=== PATIENT | female | born 1935 | race Caucasian/White ===

== ENCOUNTER 2018-02-07 05:15 | Emergency (ER) | payer OTHER ==
[2018-02-07 06:10] LABS: Absolute Lymphocytes (CBC) 1.9 K/uL (0.7-4.9); Absolute Monocytes 0.6 K/uL (0.1-1.3); Absolute Neutrophil 1.7 K/uL (1.8-8.0); Basophils % 0.4 % (0-1.3); Hematocrit 37.1 % (36.0-45.0); Lymphocytes % 45.7 % (15.3-44.8); MCH 30.6 pg (27.0-35.0); MCV 90.6 fL (80-100); MPV 9.6 fL (7.6-11.3); Monocytes % 13.5 % (3.3-12.3); RBC Red Blood Cell Count 4.09 M/uL (3.86-4.86)
[2018-02-07 06:36] LABS: ALT/SGPT 19 U/L (12-78); AST/SGOT 17 U/L (15-37); Albumin 3.4 g/dL (3.4-5.0); Alkaline Phosphatase 76 U/L (45-117); BUN Blood Urea Nitrogen 13 mg/dL (7-18); Bicarbonate 27 mmol/L (21-32); Bilirubin Direct < 0.1 mg/dL (0-0.2); Bilirubin Total 0.2 mg/dL (0.2-1.0); Glucose Level 90 mg/dL (74-106); Magnesium 2.1 mg/dL (1.8-2.4); NT PRO-BNP 270 pg/mL (<450); Potassium 3.7 mmol/L (3.5-5.1); Sodium Level 144 mmol/L (136-145); Thyroid Stimulating Hormone 0.047 uIU/mL (0.360-3.740); Troponin (Emerg Dept Use Only) 0.02 ng/mL (0.0-0.045)
--- NOTE | 2018-02-07 06:58 | ER ---
Nurse's Notes [facility] Name: Kelsi Swan Age: 82 yrs Sex: Female : 1935 Arrival Date: 02/07/2018 Time: 05:25 Bed 4 Private MD: Evgeny Jett Diagnosis: Palpitations Presentation: 02/07 05:26 Presenting complaint: Patient states: "Palpitations that began when I woke up at 0400"; lp1 Denies any chest pain, shortness of breath, dizziness. Transition of care: patient was not received from another setting of care. Onset of symptoms was February 07, 2018 at 04:00. Risk Assessment: Do you want to hurt yourself or someone else? Patient reports no desire to harm self or others. Initial Sepsis Screen: Does the patient meet any 2 criteria? No. Patient's initial sepsis screen is negative. Does the patient have a suspected source of infection? No. Patient's initial sepsis screen is negative. Care prior to arrival: None. 05:26 Method Of Arrival: Wheelchair lp1 05:26 Acuity: ANKIT 3 lp1 05:31 Note Patient states palpitations have decreased since starting. lp1 Historical: - Allergies: 05:29 No Known Allergies; lp1 - Home Meds: 05:29 levothyroxine 112 mcg tab 1 tab once daily [Active]; metoprolol tartrate 25 mg Oral tab lp1 1 tab once daily [Active]; - PMHx: 05:29 Hypertension; Hypothyroidism; lp1 - PSHx: 05:29 Hysterectomy; cataract surgery; lp1 - Immunization history:: Adult Immunizations up to date. - Social history:: Smoking status: Patient uses tobacco products, denies chronic smoking, but will smoke occasionally. - Ebola Screening: : No symptoms or risks identified at this time. Screenin:29 Abuse screen: Denies threats or abuse. Denies injuries from another. Nutritional lp1 screening: No deficits noted. Tuberculosis screening: No symptoms or risk factors identified. Fall Risk None identified. Assessment: 05:30 General: Appears in no apparent distress. Behavior is appropriate for age. Pain: Denies lp1 pain. Neuro: Level of Consciousness is awake, alert, obeys commands, Oriented to person, place, time, situation. Cardiovascular: Reports palpitations, that have improved Patient's skin is warm and dry. Rhythm is sinus tachycardia. Respiratory: Respiratory effort is even, unlabored, Breath sounds are clear bilaterally. GI: No signs and/or symptoms were reported involving the gastrointestinal system. : No signs and/or symptoms were reported regarding the genitourinary system. EENT: No signs and/or symptoms were reported regarding the EENT system. Derm: Skin is pink, warm \\T\\ dry. Musculoskeletal: Circulation, motion, and sensation intact. 06:30 Reassessment: Patient appears in no apparent distress at this time. Patient and/or lp1 family updated on plan of care and expected duration. Pain level reassessed. Patient is alert, oriented x 3, equal unlabored respirations, skin warm/dry/pink. Patient denies pain at this time. Patient states feeling better. Patient states symptoms have improved. Vital Signs: 05:28 BP 164 / 84; Pulse 105; Resp 18; Pulse Ox 99% on R/A; Weight 56.7 kg; Height 5 ft. 5 lp1 in. (165.10 cm); Pain 0/10; 06:00 BP 141 / 72; Pulse 89; Resp 17; Pulse Ox 95% on R/A; lp1 06:30 BP 144 / 70; Pulse 74; Resp 17; Temp 98.9(O); Pulse Ox 96% on R/A; Pain 0/10; lp1 06:59 BP 144 / 69; Pulse 70; Resp 18; Pulse Ox 98% on R/A; Pain 0/10; lp1 05:28 Body Mass Index 20.80 (56.70 kg, 165.10 cm) lp1 ED Course: 05:25 Patient arrived in ED. es 05:25 Evgeny Jett MD is Private Physician. es 05:28 Triage completed. lp1 05:28 Arm band placed on left wrist. lp1 05:30 EKG done, by ED staff, reviewed by Adan Hensley MD. lp1 05:31 Patient has correct armband on for positive identification. Placed in gown. Bed in low lp1 position. front desk monitor on. Pulse ox on. NIBP on. 05:36 Inserted saline lock: 20 gauge in right antecubital area, using aseptic technique. mw2 Blood collected. 05:55 X-ray completed. Portable x-ray completed in exam room. Patient tolerated procedure sg4 well. 05:57 XRAY Chest (1 view) In Process Unspecified. EDMS 06:02 Junior Martinez NP is PHCP. pm1 06:42 Teresa Hillman, RN is Primary Nurse. lp1 06:55 Marcus Last MD is Attending Physician. pm1 06:57 Evgeny Jett MD is Referral Physician. pm1 07:15 No provider procedures requiring assistance completed. IV discontinued, No lp1 redness/swelling at site. Pressure dressing applied. Administered Medications: No medications were administered Outcome: 06:57 Discharge ordered by MD. pm1 07:15 Discharged to home ambulatory. lp1 07:15 Condition: good 07:15 Discharge instructions given to patient, Instructed on discharge instructions, follow up and referral plans. Demonstrated understanding of instructions, follow-up care. 07:16 Patient left the ED. lp1 Signatures: Dispatcher [employer] EDLA Lizbeth Rasheed Teresa Hillman RN RN lp1 Junior Martinez NP HYDRAULIC GOVERNOR ASSEMBLER pm1 Senthil Falcon mw2 Jennifer Mora sg4 Corrections: (The following items were deleted from the chart) 06:46 06:30 BP 144 / 70; Pulse 74bpm; Resp 17bpm; Pulse Ox 96% RA; lp1 lp1
--- NOTE | 2018-02-07 06:58 | EDPHYS ---
Physician Documentation [facility] Name: Kelsi Swan Age: 82 yrs Sex: Female : 1935 Arrival Date: 02/07/2018 Time: 05:25 Bed 4 Private MD: Evgeny Jett ED Physician Marcus Last HPI: 02/07 06:11 This 82 yrs old Female presents to ER via Wheelchair with complaints of pm1 Palpitations. 06:11 The patient presents with a history of heart racing. Context: The symptoms occur at pm1 rest. Onset: The symptoms/episode began/occurred at 04:00. Duration: The patient or guardian reports a single episode, that is now resolved, last approximately 10 minutes. Modifying factors: The symptoms are aggravated by nothing. The symptoms are alleviated by nothing. Associated signs and symptoms: Pertinent negatives: anxiety, chest pain, cough, fever, nausea, SOB, syncope, near-syncope, vertigo, vomiting. Severity of symptoms: in the emergency department the symptoms have resolved. The patient has experienced similar episodes in the past, multiple times. The patient has not recently seen a physician, the patient's primary care provider is Dr. Jett. Historical: - Allergies: 05:29 No Known Allergies; lp1 - Home Meds: 05:29 levothyroxine 112 mcg tab 1 tab once daily [Active]; metoprolol tartrate 25 mg Oral tab lp1 1 tab once daily [Active]; - PMHx: 05:29 Hypertension; Hypothyroidism; lp1 - PSHx: 05:29 Hysterectomy; cataract surgery; lp1 - Immunization history:: Adult Immunizations up to date. - Social history:: Smoking status: Patient uses tobacco products, denies chronic smoking, but will smoke occasionally. - Ebola Screening: : No symptoms or risks identified at this time. ROS: 06:11 Constitutional: Negative for fever, chills, and weight loss, Eyes: Negative for injury, pm1 pain, redness, and discharge, ENT: Negative for injury, pain, and discharge, Neck: Negative for injury, pain, and swelling, Respiratory: Negative for shortness of breath, cough, wheezing, and pleuritic chest pain, Abdomen/GI: Negative for abdominal pain, nausea, vomiting, diarrhea, and constipation. 06:11 Back: Negative for injury and pain, : Negative for injury, bleeding, discharge, and swelling, MS/Extremity: Negative for injury and deformity, Skin: Negative for injury, rash, and discoloration, Neuro: Negative for headache, weakness, numbness, tingling, and seizure. 06:11 Cardiovascular: Positive for palpitations, Negative for chest pain, edema, orthopnea. Exam: 06:11 Constitutional: This is a well developed, well nourished patient who is awake, alert, pm1 and in no acute distress. Head/Face: Normocephalic, atraumatic. Eyes: Pupils equal round and reactive to light, extra-ocular motions intact. Lids and lashes normal. Conjunctiva and sclera are non-icteric and not injected. Cornea within normal limits. Periorbital areas with no swelling, redness, or edema. ENT: Nares patent. No nasal discharge, no septal abnormalities noted. Tympanic membranes are normal and external auditory canals are clear. Oropharynx with no redness, swelling, or masses, exudates, or evidence of obstruction, uvula midline. Mucous membranes moist. Neck: Trachea midline, no thyromegaly or masses palpated, and no cervical lymphadenopathy. Supple, full range of motion without nuchal rigidity, or vertebral point tenderness. No Meningismus. Chest/axilla: Normal chest wall appearance and motion. Nontender with no deformity. No lesions are appreciated. Cardiovascular: Regular rate and rhythm with a normal S1 and S2. No gallops, murmurs, or rubs. Normal PMI, no JVD. No pulse deficits. Respiratory: Lungs have equal breath sounds bilaterally, clear to auscultation and percussion. No rales, rhonchi or wheezes noted. No increased work of breathing, no retractions or nasal flaring. Abdomen/GI: Soft, non-tender, with normal bowel sounds. No distension or tympany. No guarding or rebound. No evidence of tenderness throughout. Back: No spinal tenderness. No costovertebral tenderness. Full range of motion. Skin: Warm, dry with normal turgor. Normal color with no rashes, no lesions, and no evidence of cellulitis. MS/ Extremity: Pulses equal, no cyanosis. Neurovascular intact. Full, normal range of motion. 06:11 Neuro: Orientation: is normal, Motor: is normal, Sensation: is normal, no obvious gross deficits. Vital Signs: 05:28 BP 164 / 84; Pulse 105; Resp 18; Pulse Ox 99% on R/A; Weight 56.7 kg; Height 5 ft. 5 lp1 in. (165.10 cm); Pain 0/10; 06:00 BP 141 / 72; Pulse 89; Resp 17; Pulse Ox 95% on R/A; lp1 06:30 BP 144 / 70; Pulse 74; Resp 17; Temp 98.9(O); Pulse Ox 96% on R/A; Pain 0/10; lp1 06:59 BP 144 / 69; Pulse 70; Resp 18; Pulse Ox 98% on R/A; Pain 0/10; lp1 05:28 Body Mass Index 20.80 (56.70 kg, 165.10 cm) lp1 MDM: 06:03 Patient medically screened. pm1 06:16 Data reviewed: vital signs. Data interpreted: Pulse oximetry: on room air is 99 %. pm1 Interpretation: normal. 06:56 Counseling: I had a detailed discussion with the patient and/or guardian regarding: the pm1 historical points, exam findings, and any diagnostic results supporting the discharge/admit diagnosis, lab results, radiology results, the need for outpatient follow up, for definitive care, Dr Jett, to return to the emergency department if symptoms worsen or persist or if there are any questions or concerns that arise at home. 06:56 ED course: Patient reports levothyroxine dosage increased a few months ago. pm1 Palpitations likely a result of increased dosage due to TSH level. Currently taking 112 mcg once daily. Instructed patient to follow up with Dr. Jett for dosage reduction of levothyroxine. Patient takes her levothyroxine at the same time each morning on empty stomach. Has prior levothyroxine medication dosage at home. 02/07 05:42 Order name: Basic Metabolic Panel; Complete Time: 06:39 mw2 02/07 05:42 Order name: CBC with Diff; Complete Time: 06:39 mw2 02/07 05:42 Order name: LFT's; Complete Time: 06:39 mw2 02/07 05:42 Order name: Magnesium; Complete Time: 06:39 mw2 02/07 05:42 Order name: NT PRO-BNP; Complete Time: 06:39 mw2 02/07 05:42 Order name: PT-INR; Complete Time: 06:39 mw2 02/07 05:42 Order name: Troponin (emerg Dept Use Only); Complete Time: 06:39 mw2 02/07 05:42 Order name: XRAY Chest (1 view) mw2 02/07 05:42 Order name: EKG; Complete Time: 05:43 mw2 02/07 05:42 Order name: Cardiac monitoring; Complete Time: 05:43 mw2 02/07 05:42 Order name: EKG - Nurse/Tech; Complete Time: 05:43 mw2 02/07 05:42 Order name: IV Saline Lock; Complete Time: 05:43 mw2 02/07 06:15 Order name: Thyroid Stimulating Hormone; Complete Time: 06:39 EDMS 02/07 05:42 Order name: Labs collected and sent; Complete Time: 05:43 mw2 02/07 05:42 Order name: O2 Per Protocol; Complete Time: 05:45 mw2 02/07 05:42 Order name: O2 Sat Monitoring; Complete Time: 05:45 mw2 Administered Medications: No medications were administered Disposition: 02/08 06:28 Co-signature as Attending Physician, Marcus Last MD I agree with the assessment and evi plan of care. Disposition: 02/07/18 06:57 Discharged to Home. Impression: Palpitations. - Condition is Stable. - Discharge Instructions: Hyperthyroidism, Palpitations. - Medication Reconciliation Form, Thank You Letter form. - Follow up: Emergency Department; When: As needed; Reason: Worsening of condition. Follow up: Evgeny Jett MD; When: 2 - 3 days; Reason: Recheck today's complaints, Continuance of care, Re-evaluation by your physician. - Problem is new. - Symptoms have improved. Signatures: Dispatcher [employer] [facility] Marcus Last MD MD cha Pena, Laura RN RN lp1 Junior Martinez, ESOL TEACHER ASSISTANT ESOL TEACHER ASSISTANT pm1 Senthil Falcon mw2 Corrections: (The following items were deleted from the chart) 02/07 06:15 06:07 THYROID STIMULAT HORMONE+C.LAB.BRZ ordered. [facility] 07:16 06:57 02/07/2018 06:57 Discharged to Home. Impression: Palpitations. Condition is lp1 Stable. Forms are Medication Reconciliation Form, Thank You Letter, Antibiotic Education, Prescription Opioid Use. Follow up: Emergency Department; When: As needed; Reason: Worsening of condition. Follow up: Evgeny Jett; When: 2 - 3 days; Reason: Recheck today's complaints, Continuance of care, Re-evaluation by your physician. Problem is new. Symptoms have improved. pm1
--- NOTE | 2018-02-07 07:03 | EKG ---
Test Date: 2018-02-07 Test Time: 05:22:23 Field Scout: LETTY MEASUREMENT RESULTS: Intervals: Rate: 105 [place]: 162 QRSD: 136 QT: 368 QTc: 486 [place]: P: 67 [place]: 162 QRS: 63 T: 237 INTERPRETIVE STATEMENTS: Sinus tachycardia Left bundle branch block Abnormal ECG Compared to ECG 03/03/2016 12:11:52 Sinus bradycardia no longer present Electronically Signed On 02-07-18 07:02:34 JANITORIAL SUPERVISOR by Armen Fields
[2018-02-07 07:25] VITALS: TEMP 98.9
[2018-02-07 07:26] VITALS: BP 144/69; O2SAT 98
--- NOTE | 2018-02-07 08:56 | RAD REPORT ---
EXAM DESCRIPTION: Rashi Single View02/07/2018 5:57 am CLINICAL HISTORY: Palpitations COMPARISON: September 2017 FINDINGS: Lungs are hyperaerated. The lungs appear clear of acute infiltrate. The heart is normal s ize IMPRESSION: No acute abnormalities displayed
== END 2018-02-07 07:16 | disposition home or self-care (01) ==
LOC: ER 05:15
DX: R00.2 Palpitations (principal); I10 Essential (primary) hypertension; E03.9 Hypothyroidism, unspecified; Z72.0 Tobacco use
CPT/HCPCS: 36415; 71045; 80048; 80076; 83735; 83880; 84443; 84484; 85025; 85610; 93005; 99284

== ENCOUNTER 2018-03-05 09:50 | Emergency (ER) | payer OTHER ==
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
[2018-03-05 11:44] VITALS: TEMP 98.6
[2018-03-05 11:45] VITALS: BP 112/68; O2SAT 98
== END 2018-03-05 11:39 | disposition home or self-care (01) ==
LOC: ER 09:50
DX: S29.012A Strain of muscle and tendon of back wall of thorax, initial encounter (principal); V89.2XXA Person injured in unspecified motor-vehicle accident, traffic, initial encounter; I10 Essential (primary) hypertension; E03.9 Hypothyroidism, unspecified; Z72.0 Tobacco use
CPT/HCPCS: 70450; 72125; 99284

== ENCOUNTER 2018-07-22 20:47 | Emergency (ER) | payer OTHER ==
--- NOTE | 2018-07-22 21:37 | ER ---
Nurse's Notes [facility] Name: Kelsi Swan Age: 82 yrs Sex: Female : 1935 Arrival Date: 07/22/2018 Time: 21:06 Bed 28 Private MD: Diagnosis: Skin tear Presentation: 07/22 21:15 Presenting complaint: Patient states: "I got my left leg caught between the venue manager jd3 and the garage door and it got cut.". Transition of care: patient was not received from another setting of care. Onset of symptoms was July 22, 2018. Risk Assessment: Do you want to hurt yourself or someone else? Patient reports no desire to harm self or others. Initial Sepsis Screen: Does the patient meet any 2 criteria? No. Patient's initial sepsis screen is negative. Does the patient have a suspected source of infection? No. Patient's initial sepsis screen is negative. Care prior to arrival: None. 21:15 Method Of Arrival: Wheelchair jd3 21:15 Acuity: ANKIT 3 jd3 Historical: - Allergies: 21:18 No Known Allergies; jd3 - Home Meds: 21:18 levothyroxine 112 mcg tab 1 tab once daily [Active]; metoprolol tartrate 25 mg Oral tab jd3 1 tab once daily [Active]; aspirin 81 mg Oral chew [Active]; - PMHx: 21:18 Hypertension; Hypothyroidism; Osteoporosis; chronic bronchitis; jd3 - PSHx: 21:18 cataract surgery; Hysterectomy; jd3 - Immunization history:: Adult Immunizations up to date. - Social history:: Smoking status: Patient uses tobacco products, denies chronic smoking, but will smoke occasionally. - Ebola Screening: : Patient negative for fever greater than or equal to 101.5 degrees Fahrenheit, and additional compatible Ebola Virus Disease symptoms. Screenin:41 Abuse screen: Denies threats or abuse. Denies injuries from another. Nutritional mg2 screening: No deficits noted. Tuberculosis screening: No symptoms or risk factors identified. Fall Risk None identified. Assessment: 21:42 General: Appears in no apparent distress. comfortable, Behavior is calm, cooperative. mg2 Pain: Complains of pain in left leg Pain does not radiate. Pain currently is 3 out of 10 on a pain scale. Quality of pain is described as aching, Pain began suddenly. Neuro: Level of Consciousness is awake, alert, obeys commands, Oriented to person, place, time, situation. Cardiovascular: Capillary refill < 3 seconds Patient's skin is warm and dry. Respiratory: Airway is patent Respiratory effort is even, unlabored, Respiratory pattern is regular, symmetrical. GI: No signs and/or symptoms were reported involving the gastrointestinal system. : No signs and/or symptoms were reported regarding the genitourinary system. EENT: No signs and/or symptoms were reported regarding the EENT system. Derm: Skin is pink, warm \\T\\ dry. normal, Wound noted left leg Wound is abrasion. Musculoskeletal: Circulation, motion, and sensation intact. Capillary refill < 3 seconds. Injury Description: Abrasion and skin tear. Vital Signs: 21:19 BP 170 / 92; Pulse 83; Resp 17 S; Temp 98.0(O); Pulse Ox 97% on R/A; Weight 56.7 kg jd3 (R); Height 5 ft. 5 in. (165.10 cm) (R); Pain 2/10; 21:19 Body Mass Index 20.80 (56.70 kg, 165.10 cm) jd3 ED Course: 21:06 Patient arrived in ED. ds1 21:08 Daphney Martínez F[facility]C is [facility]. snw 21:08 Jay García MD is Attending Physician. snw 21:10 Preston Gallardo, JOSE is Primary Nurse. mg2 21:17 Triage completed. jd3 21:19 Arm band placed on. jd3 21:41 No provider procedures requiring assistance completed. Patient did not have IV access mg2 during this emergency room visit. 22:08 Patient has correct armband on for positive identification. mg2 22:08 Wound care: to skin tear located on left leg was cleaned with Hibiclens, irrigated with mg2 normal saline, dressed with Neosporin, 4X4s, non adherent dressing. Administered Medications: 21:40 Drug: KeFLEX 500 mg Route: PO; mg2 22:08 Follow up: Response: No adverse reaction; Medication administered at discharge. mg2 Outcome: 21:36 Discharge ordered by . snw 22:09 Discharged to home ambulatory. mg2 22:09 Condition: stable 22:09 Discharge instructions given to patient, Instructed on discharge instructions, follow up and referral plans. medication usage, Demonstrated understanding of instructions, follow-up care, medications, wound care, Prescriptions given X 1. 22:10 Patient left the ED. mg2 Signatures: Daphney Martínez, MARIAH-C RACING DRIVER-Nemo Yan ds1 Alonso Simpson RN RN jd3 Preston Gallardo RN RN mg2 Corrections: (The following items were deleted from the chart) 21:20 21:15 Presenting complaint: Patient states: "I got my leg caught between the venue manager jd3 and the garage door and it got cut." jnatasha
--- NOTE | 2018-07-22 21:37 | EDPHYS ---
Physician Documentation [facility] Name: Kelsi Swan Age: 82 yrs Sex: Female : 1935 Arrival Date: 07/22/2018 Time: 21:06 Bed 28 Private MD: ED Physician Jay García HPI: 07/23 00:12 This 82 yrs old Female presents to ER via Wheelchair with complaints of Leg snw Injury. 00:12 The patient presents with an abrasion, an injury. The complaints affect the lateral snw aspect of left calf and medial aspect of left calf. Context: The problem was sustained outdoors, resulted from a crush injury, pt caught her leg between the amusement park ride mechanic and another object, skin tear to left lower leg. pt up to date on tetanus, denies pain, walked into ED room without difficulty, bleeding controlled, the patient can fully bear weight, the patient is able to ambulate. Onset: The symptoms/episode began/occurred suddenly, just prior to arrival. Associated signs and symptoms: Pertinent positives: skin tear. Severity of symptoms: At their worst the symptoms were mild, moderate. The patient has experienced similar episodes in the past. It is unknown whether or not the patient has recently seen a physician, sees Dr. Jett. Historical: - Allergies: 07/22 21:18 No Known Allergies; jd3 - Home Meds: 21:18 levothyroxine 112 mcg tab 1 tab once daily [Active]; metoprolol tartrate 25 mg Oral tab jd3 1 tab once daily [Active]; aspirin 81 mg Oral chew [Active]; - PMHx: 21:18 Hypertension; Hypothyroidism; Osteoporosis; chronic bronchitis; jd3 - PSHx: 21:18 cataract surgery; Hysterectomy; jd3 - Immunization history:: Adult Immunizations up to date. - Social history:: Smoking status: Patient uses tobacco products, denies chronic smoking, but will smoke occasionally. - Ebola Screening: : Patient negative for fever greater than or equal to 101.5 degrees Fahrenheit, and additional compatible Ebola Virus Disease symptoms. ROS: 07/23 00:11 Constitutional: Negative for fever, chills, and weight loss, Eyes: Negative for injury, snw pain, redness, and discharge, ENT: Negative for injury, pain, and discharge, Neck: Negative for injury, pain, and swelling, Cardiovascular: Negative for chest pain, palpitations, and edema, Respiratory: Negative for shortness of breath, cough, wheezing, and pleuritic chest pain, Abdomen/GI: Negative for abdominal pain, nausea, vomiting, diarrhea, and constipation, Back: Negative for injury and pain, : Negative for injury, bleeding, discharge, and swelling, MS/Extremity: Negative for injury and deformity, Neuro: Negative for headache, weakness, numbness, tingling, and seizure, Psych: Negative for depression, anxiety, suicide ideation, homicidal ideation, and hallucinations. Skin: Positive for laceration(s), of the left leg. Exam: 00:09 Constitutional: This is a well developed, well nourished patient who is awake, alert, snw and in no acute distress. Head/Face: Normocephalic, atraumatic. Eyes: Pupils equal round and reactive to light, extra-ocular motions intact. Lids and lashes normal. Conjunctiva and sclera are non-icteric and not injected. Cornea within normal limits. Periorbital areas with no swelling, redness, or edema. ENT: Nares patent. No nasal discharge, no septal abnormalities noted. Tympanic membranes are normal and external auditory canals are clear. Oropharynx with no redness, swelling, or masses, exudates, or evidence of obstruction, uvula midline. Mucous membranes moist. Neck: Trachea midline, no thyromegaly or masses palpated, and no cervical lymphadenopathy. Supple, full range of motion without nuchal rigidity, or vertebral point tenderness. No Meningismus. Chest/axilla: Normal chest wall appearance and motion. Nontender with no deformity. No lesions are appreciated. Cardiovascular: Regular rate and rhythm with a normal S1 and S2. No gallops, murmurs, or rubs. Normal PMI, no JVD. No pulse deficits. Respiratory: Lungs have equal breath sounds bilaterally, clear to auscultation and percussion. No rales, rhonchi or wheezes noted. No increased work of breathing, no retractions or nasal flaring. Abdomen/GI: Soft, non-tender, with normal bowel sounds. No distension or tympany. No guarding or rebound. No evidence of tenderness throughout. Back: No spinal tenderness. No costovertebral tenderness. Full range of motion. MS/ Extremity: Pulses equal, no cyanosis. Neurovascular intact. Full, normal range of motion. Neuro: Awake and alert, GCS 15, oriented to person, place, time, and situation. Cranial nerves II-XII grossly intact. Motor strength 5/5 in all extremities. Sensory grossly intact. Cerebellar exam normal. Normal gait. 00:09 Skin: Appearance: normal except for affected area, injury, skin tear to lower left leg, bleeding controlled, pt denies pain. Vital Signs: 07/22 21:19 BP 170 / 92; Pulse 83; Resp 17 S; Temp 98.0(O); Pulse Ox 97% on R/A; Weight 56.7 kg jd3 (R); Height 5 ft. 5 in. (165.10 cm) (R); Pain 2/10; 21:19 Body Mass Index 20.80 (56.70 kg, 165.10 cm) jd3 MDM: 21:08 Patient medically screened. snw 07/23 00:11 Data reviewed: vital signs, nurses notes. Data interpreted: Pulse oximetry: on room air snw is 97 %. Interpretation: normal. Counseling: I had a detailed discussion with the patient and/or guardian regarding: the historical points, exam findings, and any diagnostic results supporting the discharge/admit diagnosis, the presence of at least one elevated blood pressure reading (>120/80) during this emergency department visit, the need for outpatient follow up, to return to the emergency department if symptoms worsen or persist or if there are any questions or concerns that arise at home. Special discussion: I discussed in detail with the patient the higher chance of wound infection based on his presenting history. Based on the history and exam findings, there is no indication for further emergent testing or inpatient evaluation. I discussed with the patient/guardian the need to see the primary care provider for further evaluation of the symptoms. 07/22 21:35 Order name: Wound Care; Complete Time: 21:35 snw 07/22 21:35 Order name: Wound dressing; Complete Time: 21:35 snw Administered Medications: 07/22 21:40 Drug: KeFLEX 500 mg Route: PO; mg2 22:08 Follow up: Response: No adverse reaction; Medication administered at discharge. mg2 Disposition: 07/22/18 21:36 Discharged to Home. Impression: Skin tear. - Condition is Stable. - Discharge Instructions: Skin Tear Care. - Prescriptions for Keflex 500 mg Oral Capsule - take 1 capsule by ORAL route every 8 hours for 10 days; 30 capsule. - Medication Reconciliation Form, Thank You Letter, Antibiotic Education, Prescription Opioid Use form. - Follow up: Private Physician; When: 2 - 3 days; Reason: Recheck today's complaints, Continuance of care, Re-evaluation by your physician. Follow up: Emergency Department; When: As needed; Reason: Worsening of condition. Signatures: Daphney Martínez FNP-C CHEMICAL PREPARER-Alonso Chilel RN RN jd3 Preston Gallardo RN RN mg2 Corrections: (The following items were deleted from the chart) 22:10 21:36 07/22/2018 21:36 Discharged to Home. Impression: Skin tear. Condition is Stable. mg2 Forms are Medication Reconciliation Form, Thank You Letter, Antibiotic Education, Prescription Opioid Use. Follow up: Private Physician; When: 2 - 3 days; Reason: Recheck today's complaints, Continuance of care, Re-evaluation by your physician. Follow up: Emergency Department; When: As needed; Reason: Worsening of condition. snw
[2018-07-22] MEDS ORDERED: CEPHALEXIN 250 MG CAP ONE (21:53)
[2018-07-22 23:29] VITALS: BP 170/92; TEMP 98; O2SAT 97
== END 2018-07-22 22:10 | disposition home or self-care (01) ==
LOC: ER 20:47
DX: S81.812A Laceration without foreign body, left lower leg, initial encounter (principal); W22.8XXA Striking against or struck by other objects, initial encounter; Y93.9 Activity, unspecified; Y92.9 Unspecified place or not applicable; Z72.0 Tobacco use; Z79.82 Long term (current) use of aspirin; E03.9 Hypothyroidism, unspecified; I10 Essential (primary) hypertension
CPT/HCPCS: 99284

== ENCOUNTER 2019-07-04 06:26 | Day surgery (SDC) | payer OTHER ==
[2019-07-03 11:11] LABS: Absolute Lymphocytes (CBC) 1.6 K/uL (0.7-4.9); Hematocrit 37.2 % (36.0-45.0); Lymphocytes % 37.8 % (15.3-44.8); MPV 9.3 fL (7.6-11.3); RBC Red Blood Cell Count 4.15 M/uL (3.86-4.86)
[2019-07-03 11:14] LABS: Protime INR 0.97
[2019-07-03 11:30] LABS: Potassium 4.1 mmol/L (3.5-5.1)
--- NOTE | 2019-07-03 11:51 | RAD REPORT ---
EXAM DESCRIPTION: RAD - Chest Pa And Lat (2 Views) - 07/03/2019 11:43 am CLINICAL HISTORY: preop Chest pain. COMPARISON: Chest Pa And Lat (2 Views) dated 01/03/2019; Chest Single View dated 02/07/2018; Chest P a And Lat (2 Views) dated 10/07/2017; Chest Pa And Lat (2 Views) dated 09/13/2017 FINDINGS: The lungs are clear. The heart is normal in size. No displaced fractures. IMPRESSION: No acute or concerning finding suspected.
--- OUTSIDE RECORDS SUMMARY | 2019-07-04 06:29 | XMS REPORT | Continuity of Care Document ---
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) N euro Medications Medication Details Route Status Patient Ordering Order Source Instructions Provider Date Vitamin B12 1,000 Active 11/16/19 [facility] 1000 mcg/mL microgram, 19 Neuro injectable IM, qWeek, # solution 10 mL, 1 Refill(s), Pharmacy: [id number], with needles and syringes Prolia 60 mg, Active 10/05/19 [facility] SUB-Q, q6mo, 19 Neuro 0 Refill(s) Non-Formulary See Active 10/05/19 [facility] Home Instructions 19 Neuro Medication , CBD oil, Refill(s) 0 Thyroxine Daily, 0 Active 10/05/19 [facility] Refill(s) 19 Neuro Allergies, Adverse Reactions, Alerts Substance Category Reaction Severity Reaction Status Date Comments S ource type Reported No Known Assertion Drug Misch er Medication allergy Neuro Allergies Immunizations No Data Provided for This Section Results Order Results Value Reference Date Interpretation Comments Source Name Range ANEMIA Vitamin 380 200 - 1100 11/15/ Result Comment: Misch er STUDY B12 Lvl 2018
Please Note: Neuro Although the reference range for vitamin
B12 is 200-1100 pg/mL, it has been reported that between
5 and 10% of patients with values between 200 and 400
pg/mL may experience neuropsychiatric and hematologic
ab normalities due to occult B12 deficiency; less than 1%
of patients with values above 400 pg/mL will have symptoms.

FASTING:NO

FASTING: NO

Lab test performed by:
[facility]
[address]
[place] [address]
Arturo Sanchez Pathology Reports No Data Provided for This Section Diagnostic Reports No Data Provided for This Section Consultation Notes No Data Provided for This Section Discharge Summaries No Data Provided for This Section History and Physicals No Data Provided for This Section Vital Signs Vital Sign Value Date Comments Source Systolic (mm Hg) 141 01/05/2019 [facility] Diastolic (mm Hg) 84 01/05/2019 [facility] Ne uro Heart Rate 96 01/05/2019 [facility] Respitory Rate 16 01/05/2019 [facility] Height 160.02 cm 01/05/2019 [facility] Weight 59.545 01/05/2019 [facility] BMI Calculated 23.25 01/05/2019 [facility] Systolic (mm Hg) 145 11/15/2018 [facility] M[facility] ro Diastolic (mm Hg) 83 11/15/2018 [facility] Ne uro Heart Rate 80 11/15/2018 [facility] Respitory Rate 16 11/15/2018 [facility] Height 160.02 cm 11/15/2018 [facility] Weight 59.545 11/15/2018 [facility] BMI Calculated 23.25 11/15/2018 [facility] Systolic (mm Hg) 175 10/04/2018 [facility] Diastolic (mm Hg) 87 10/04/2018 [facility] Heart Rate 83 10[place]04[place] [facility] [place] 16 10/04/2018 [facility] [place] 157.48 cm 10/04/2018 [facility] [place] 59.545 10/04/2018 [facility] [place] BMI Calculated 24.01 10/04/2018 [facility] Encounters Location Location Encounter Encounter Reason Attending ADM CO Stat us Source Details Type Number For Provider Date Date Visit Outpatient [id number] Cornelio 10/[address] [facility] [place] [facility] Out[facility] [id number] Cornelio 10/04 [place]05 [facility] [place] [facility] Outpatient [id number] Cornelio 11/[address] [facility] [place] [facility] Outpatient [id number] Cornelio 11/15 11[place]16 [facility] [place] [facility] [place] [id number] Cornelio 12/27 Active [facility] [place] [facility] Ambulatory [id number] Evgeny 12/27 12/27 [facility] Outpatient [id number] Cornelio 01/05 Active [facility] [facility] Outpatient [id number] Evgeny 01/05 01/06 [facility] Outpatient [id number] Dickson 07/05 Active [facility] Procedures No Data Provided for This Section Assessment and Plan No Data Provided for This Section Plan of Care No Data Provided for This Section Social History Social History Date Source Social History TypeResponse 01/05/2019 [facility] Smoking Status Never smoker; Exposure to Tobacco Smoke None; Cigarette Smoking Last 365 Days No; Reg Smoking Cessation Counseling No entered on: 01/05/19 Family History No Data Provided for This Section Advance Directives No Data Provided for This Section Functional Status No Data Provided for This Section
[2019-07-04] MEDS ORDERED: HEPA 1000U/500MLS 1,000 UNIT/500 ML BAG IV ONE (06:43)
[2019-07-04] MEDS ORDERED: MIDAZOLAM HCL 2 MG/2 ML INJ ONE ×2 (06:43→07:39)
[2019-07-04] MEDS ORDERED: FENTANYL CITR 100 MCG/2 ML ONE (06:44)
[2019-07-04] MEDS ORDERED: ATROPINE SULF 1 MG/10 ML SYR IV ONE (06:44)
[2019-07-04] MEDS ORDERED: LIDOCAINE 1% MPF 30 ML VIAL ONE (06:44)
[2019-07-04] MEDS ORDERED: NA CHLORIDE 0.9% 0 ML ONE (06:44)
[2019-07-04] MEDS ORDERED: NA CHLORIDE 0.9% 500 ML ONE (06:55)
[2019-07-04 08:10] VITALS: TEMP 97.1
[2019-07-04 09:50] VITALS: BP 149/63; O2SAT 96
--- NOTE | 2019-07-05 04:56 | OP ---
Date of Procedure: 07/04/2019 Surgeon: Usman Wilson MD Cattle Examiner: Keyur Burrell. The patient was admitted as an outpatient to the sleep lab technologist on 07/04/2019. Procedure: Selective coronary arteriogram and left heart catheterization. Indication: Atypical chest pain, history of coronary artery disease, and positive stress test. History Of Present Illness: Ms. Swan is 83. She was brought to the sleep lab technologist as an outpatient. She was prepped and draped in the routine sterile fashion. She received 2 mg of Versed for IV sedation. A 6-Thai sheath was introduced in the right common femoral artery successfully. Angio-Seal was u sed to close the case. A 6-Thai Tramaine catheter left and right were used to do the diagnostic cat heterization. She was found to have a normal left main. Her circumflex was normal. Her RCA was nor mal. Her LAD showed some minor plaquing throughout without any focal stenosis. Complications were n one. Estimated blood loss was 5 mL. Total conscious sedation was 30 minutes. Final Diagnoses: [id number] coronary artery disease. Plan: To continue medical therapy. Plan: Plan is for patient to go home today in 2 hours and I will see her in the office in the next w nome or 2. OMAR/JONNIE Voice ID: [id number] Report ID: [id number]
== END 2019-07-04 09:50 | disposition home or self-care (01) ==
LOC: CCL 06:26
DX: I25.10 Atherosclerotic heart disease of native coronary artery without angina pectoris (principal); I35.0 Nonrheumatic aortic (valve) stenosis; I67.9 Cerebrovascular disease, unspecified; R06.02 Shortness of breath; E03.9 Hypothyroidism, unspecified; R94.31 Abnormal electrocardiogram [ECG] [EKG]; Z79.82 Long term (current) use of aspirin
CPT/HCPCS: 85025; 80048; 36415; 85610; 85730; 71046; 93454; C1893; C1760; J2250; J3010; J7040; J0583

== ENCOUNTER 2020-05-20 22:26 | Emergency (ER) | payer OTHER ==
--- OUTSIDE RECORDS SUMMARY | 2020-05-20 22:28 | XMS REPORT | Continuity of Care Document ---
:1935 Author Organization [facility] t Address [address] [place] [address] Care Team Providers Name Role Phone Bernardino Soto Attending Clinician Lino, Ahmet Sepulveda I Attending Clinician Unavailable Problems Condition Condition Condition Status Onset Resolution Last Treating Co mments Source Name Details Category Date Date Treatment Clinician Date Cobalamin Problem Active 2020-04-19 Me moria deficiency 02:11:17 l (disorder) Sung n Cobalamin deficiency (disorder) Active Problem 04/19/2020 [facility] Hypothyroi Problem Active 2020-04-19 M emoria dism 02:11:17 l (disorder) Sung n Hypothyroi dism (disorder) Active Problem 04/19/2020 [facility] Paresthesi Problem Active 2020-04-19 M emoria a 02:11:17 l (finding) [place] Paresthesi a (finding) Active Problem 04/19/2020 [facility] Peripheral Problem Active 2020-04-19 M emoria nerve 02:11:17 l disease Deni (disorder) Peripheral nerve disease (disorder) Active Problem 04/19/2020 [facility] Lumbar Problem Active 2020-04-19 Memor ia spondylosi 02:11:17 l s Lumbar Deni (disorder) spondylosi s (disorder) Active Problem 04/19/2020 [facility] Allergies, Adverse Reactions, Alerts Allergy Allergy Status Severity Reaction(s) Onset Inactive Treating Comm ents Source Name Type Date Date Clinician No Known No Known Active Memori a Medicati Medicati l on on Deni Allergie Allergie s s Social History Smoking Status Start Date Stop Date Source Social History [facility] Deni Medications Ordered Filled Start Stop Current Ordering Indication Dosage Frequency Signature Comments Components Source Medication Medication Date Date Medication? Clinician (SIG) Name Name claude Yes 1,000 Memor ia min 1000 1-12 microgram l mcg 17:18: = 1 tab, Deni sublingual 00 SL, Daily, tablet # 30 tab, 3 Refill(s), Pharmacy: [facility] #[id number], 160.02, cm, 03/05/20 10:50:00 [employer], Height, 60.909, kg, 03/05/20 10:50:00 [employer], Weight amitriptyli 2019-02 Yes 25 mg = 1 M emoria ne 25 mg 1-10 tab, PO, l oral tablet 16:57: Bedtime, # [place] 00 30 tab, 1 Refill(s) Vitamin B12 Yes 1,000 Memor ia 1000 mcg/mL 9-24 microgram, l injectable 20:37: IM, qWeek, H ermann solution 28 # 10 mL, 1 Refill(s), Pharmacy: [facility] #[id number], with needles and syringes Prolia Yes 60 mg, Memoria 8-13 SUB-Q, l 14:56: q6mo, 0 Deni 00 Refill(s) Non-Formula Yes See [facility] 8-13 Instructio l Medication 14:56: ns, CBD Herm og 00 oil, Refill(s) 0 Thyroxine Yes Daily, 0 Jake daniel 8-13 Refill(s) l 13:57: [place] 00 Vital Signs Vital Name Observation Time Observation Value Comments Source Systolic (mm Hg) 2020-04-16 18:03:00 Jake rial [place] Diastolic (mm Hg) 2020-04-16 18:03:00 Mem orial [place] Heart Rate 2020-04-16 18:03:00 [facility] [place] Respitory Rate 2020-04-16 18:03:00 Memori al [place] Height 2020-04-16 18:03:00 [facility] 2020-04-16 18:03:00 [facility] [place] BMI Calculated 2020-04-16 18:03:00 Memori al [place] Systolic (mm Hg) 2020-03-05 16:50:00 Jake rial [place] Diastolic (mm Hg) 2020-03-05 16:50:00 Mem orial [place] Heart Rate 2020-03-05 16:50:00 [facility] [place] Respitory Rate 2020-03-05 16:50:00 Memori al [place] Height 2020-03-05 16:50:00 160.02 cm [facility] [place] Weight 2020-03-05 16:50:00 [facility] [place] BMI Calculated 2020-03-05 16:50:00 Memori al [place] Systolic (mm Hg) 2020-01-02 15:58:00 Jake rial [place] Diastolic (mm Hg) 2020-01-02 15:58:00 Mem orial [place] Heart Rate 2020-01-02 15:58:00 [facility] [place] Respitory Rate 2020-01-02 15:58:00 Memori al [place] Height 2020-01-02 15:58:00 157.48 cm [facility] [place] Weight 2020-01-02 15:58:00 [facility] [place] BMI Calculated 2020-01-02 15:58:00 Mem[facility] al [place] Systolic (mm Hg) 2019-11-16 16:09:00 Jake rial [place] Diastolic (mm Hg) 2019-11-16 16:09:00 Mem orial [place] Heart Rate 2019-11-16 16:09:00 [facility] [place] Respitory Rate 2019-11-16 16:09:00 Memori al [place] Height 2019-11-16 16:09:00 157.48 cm [facility] [place] Weight 2019-11-16 16:09:00 [facility] [place] BMI Calculated 2019-11-16 16:09:00 Memori al [place] Systolic (mm Hg) 2019-01-05 20:12:00 Jake rial [place] Diastolic (mm Hg) 2019-01-05 20:12:00 Mem orial [place] Heart Rate 2019-01-05 20:12:00 [facility] [place] Respitory Rate 2019-01-05 20:12:00 Memori al [place] Height 2019-01-05 20:12:00 160.02 cm [facility] [place] Weight 2019-01-05 20:12:00 [facility] [place] BMI Calculated 2019-01-05 20:12:00 Mem[facility] [place] Systolic (mm Hg) 2018-11-15 19:48:00 Jake rial [place] Diastolic (mm Hg) 2018-11-15 19:48:00 Mem orial [place] Heart Rate 2018-11-15 19:48:00 [facility] [place] Respitory Rate 2018-11-15 19:48:00 Memori al [place] Height 2018-11-15 19:48:00 160.02 cm [facility] [place] Weight 2018-11-15 19:48:00 [facility] [place] BMI Calculated 2018-11-15 19:48:00 Mem[facility] al [place] Respitory Rate 2018-10-04 13:51:00 Mem[facility] [place] Height 2018-10-04 13:51:00 157.48 cm [facility] [place] Weight 2018-10-04 13:51:00 [facility] [place] BMI Calculated 2018-10-04 13:51:00 Memori [facility] [place] Systolic (mm Hg) 2018-10-04 13:51:00 Jake rial [place] Diastolic (mm Hg) 2018-10-04 13:51:00 Mem orial [place] Heart Rate 2018-10-04 13:51:00 [facility] Procedures This patient has no known procedures. Encounters Start End Encounter Admission Attending Care Care Encounter Source Date/Time Date/Time Type Type Clinicians Facility Department ID 2020-04-16 2020-04-16 Outpatient FLASH SotoSCHER [id number] 11:45:00 23:59:59 Cornelio 08 Bernardino 2020-03-15 2020-03-15 Laboratory Lab, [facility] [id number] 11:00:40 11:20:40 Only [facility] [id number] [place] [id number] Professio [id number] [address] 2020-03-05 2020-03-05 Outpatient KAE SotoSCHAYAKA FRAZIERMISCHER [id number] 10:15:00 23:59:59 Cornelio 07 Bernardino 2020-01-02 2020-01-02 Outpatient KAE SotoSCHAYAKA FRAZIERMISCHER [id number] 10:15:00 23:59:59 Cornelio 06 Bernardino 2019-11-16 2019-11-16 Outpatient KAE SotoSCHAYAKA MHMISCHER [id number] 10:45:00 23:59:59 Cornelio 05 Bernardino 2019-07-06 2019-07-06 Outpatient KAE SotoSCHER [facility]CH[facility] [id number] 14:15:00 14:15:00 Cornelio 04 Bernardino 2019-01-05 2019-01-05 Outpatient KAE SotoSCHER MISCHER [id number] 14:00:00 23:59:59 Cornelio 03 Bernardino 2018-12-27 2018-12-27 [facility] [id number] 15:30:00 15:30:00 Cornelio 02 Bernardino 2018-11-15 2018-11-15 [address] [id number] 14:15:00 23:59:59 Cornelio Bernardino 2018-10-04 2018-10-04 [facility] [id number] 09:30:00 23:59:59 Cornelio 00 Bernardino Results Test Description Test Time Test Comments Results Result Comments Source ANEMIA STUDY 2020-03-06 1500 [facility] 16:26:00 IMMUNOLOGY 2020-03-06 [facility] 16:26[facility]00 ANEMIA STUDY 2018-11-15 380 [facility] [place] 20:49:00
[2020-05-20 22:56] LABS: Absolute Lymphocytes (CBC) 2.5 K/uL (0.7-4.9); Basophils % 0.2 % (0-1.3); Hematocrit 37.5 % (36.0-45.0); MPV 9.2 fL (7.6-11.3); RBC Red Blood Cell Count 4.18 M/uL (3.86-4.86)
[2020-05-20 23:18] LABS: Protime INR 0.97
[2020-05-20 23:26] LABS: ALT/SGPT 20 U/L (12-78); AST/SGOT 14 U/L (15-37); Albumin 3.8 g/dL (3.4-5.0); Alkaline Phosphatase 57 U/L (45-117); BUN Blood Urea Nitrogen 16 mg/dL (7-18); Bicarbonate 28 mmol/L (21-32); Bilirubin Direct < 0.1 mg/dL (0-0.2); Bilirubin Total 0.3 mg/dL (0.2-1.0); Glucose Level 96 mg/dL (74-106); Magnesium 2.1 mg/dL (1.8-2.4); NT PRO-BNP 391 pg/mL (<450); Potassium 3.8 mmol/L (3.5-5.1); Protein, Total 7.7 g/dL (6.4-8.2); Sodium Level 144 mmol/L (136-145); Troponin (Emerg Dept Use Only) 0.02 ng/mL (0.0-0.045)
--- NOTE | 2020-05-20 23:53 | ER ---
Nurse's Notes [facility] Name: Kelsi Swan Age: 84 yrs Sex: Female : 1935 Arrival Date: 05/20/2020 Time: 22:27 Bed 6 Private MD: Diagnosis: Hypertensive urgency Presentation: 05/20 22:38 Chief complaint: Patient states: About , I was sitting outside and could still sg see the birds flying around, when I heard croaking. And I thought, its awful early in the day and too cool to be hearing frogs croaking, and the croaking was actually in my neck, like a constant throbbing and I went and took my blood pressure and it was high, so i took a 50 mg tablet for my blood pressure, metoprolol. I dont know whats got my blood pressure high or if Im excited or what... Coronavirus screen: Client denies travel out of the [place] in the last 14 days. At this time, the client does not indicate any symptoms associated with coronavirus-19. Ebola Screen: Patient negative for fever greater than or equal to 101.5 degrees Fahrenheit, and additional compatible Ebola Virus Disease symptoms Patient denies exposure to infectious person. Patient denies travel to an Ebola-affected area in the 21 days before illness onset. No symptoms or risks identified at this time. Initial Sepsis Screen: Does the patient meet any 2 criteria? No. Patient's initial sepsis screen is negative. Does the patient have a suspected source of infection? No. Patient's initial sepsis screen is negative. Risk Assessment: Do you want to hurt yourself or someone else? Patient reports no desire to harm self or others. Onset of symptoms was May 20, 2020. Transition of care: patient was not received from another setting of care. 22:38 Method Of Arrival: Wheelchair sg 22:38 Acuity: ANKIT 3 sg Historical: - Allergies: 22:42 No Known Allergies; sg - PMHx: 22:42 chronic bronchitis; Hypertension; Hypothyroidism; Osteoporosis; sg - PSHx: 22:42 cataract surgery; Hysterectomy; sg - Immunization history:: Adult Immunizations up to date. - Social history:: Smoking status: Patient denies any tobacco usage or history of. Screenin:39 Abuse screen: Denies threats or abuse. Nutritional screening: No deficits noted. ea Tuberculosis screening: No symptoms or risk factors identified. Fall Risk None identified. 22:39 Abuse screen: Denies threats or abuse. Denies injuries from another. Nutritional rr5 screening: No deficits noted. Tuberculosis screening: No symptoms or risk factors identified. Assessment: 22:48 General: Appears in no apparent distress. Behavior is calm, cooperative, appropriate ea for age. Pain: Denies pain. Neuro: Level of Consciousness is awake, alert, obeys commands, Oriented to person, place, time, situation. Cardiovascular: Patient's skin is warm and dry. Respiratory: Airway is patent Respiratory effort is even, unlabored, Respiratory pattern is regular, symmetrical. Derm: Skin is pink, warm \T\ dry. 23:48 Reassessment: Patient appears in no apparent distress at this time. Patient is alert, rr5 oriented x 3, equal unlabored respirations, skin warm/dry/pink. Patient states feeling better. Patient states symptoms have improved. 05/21 00:01 Reassessment: Patient and/or family updated on plan of care and expected duration. Pain ea level reassessed. Patient is alert, oriented x 3, equal unlabored respirations, skin warm/dry/pink. Discharge instruction given to patient verbalized the understanding of instruction. Pt left ED ambulatory tolerating well. Vital Signs: 05/20 22:37 BP 154 / 89; Pulse 80; Resp 19; Pulse Ox 96% ; ea 23:05 BP 124 / 75; Pulse 76; Resp 18; Pulse Ox 95% ; ea ED Course: 22:27 Patient arrived in ED. am4 22:31 Adan Hensley MD is Attending Physician. tw4 22:39 Oanh Jauregui, JOSE is Primary Nurse. ea 22:39 Patient has correct armband on for positive identification. Bed in low position. Call ea light in reach. Side rails up X2. 22:41 Triage completed. sg 22:49 Arm band placed on right wrist. Patient placed in an exam room, on a stretcher, on ea cardiac sonographer, on pulse oximetry. 23:00 XRAY Chest (1 view) In Process Unspecified. EDMS 23:00 No provider procedures requiring assistance completed. Inserted saline lock: 20 gauge rr5 in right forearm, using aseptic technique. Blood collected. 05/21 00:01 IV discontinued, intact, bleeding controlled, No redness/swelling at site. Pressure rr5 dressing applied. Administered Medications: No medications were administered Outcome: 05/20 23:52 Discharge ordered by . tw4 05/21 00:02 Discharged to home via wheelchair. vera Condition: stable Discharge instructions given to patient, Instructed on discharge instructions, follow up and referral plans. Demonstrated understanding of instructions, follow-up care. 00:02 Patient left the ED. ea Signatures: Dispatcher [employer] EDBran Portillo RN RN sg Antunez, Elena, RN RN ea Wadley, Terrence, MD MD tw4 Niall Orona RN RN rr5 Marie Aranda 4 Corrections: (The following items were deleted from the chart) 05/20 23:06 23:05 BP 154 / 75; Pulse 76bpm; Resp 18bpm; Pulse Ox 95%; vera gamez
--- NOTE | 2020-05-20 23:53 | EDPHYS ---
Physician Documentation [facility] Name: Kelsi Swan Age: 84 yrs Sex: Female : 1935 Arrival Date: 05/20/2020 Time: 22:27 Bed 6 Private MD: ED Physician Adan Hensley HPI: 05/21 05:25 This 84 yrs old Female presents to ER via Wheelchair with complaints of High tw4 Blood Pressure. 05:25 The patient has elevated blood pressure and discovered this at [address] Onset: The symptoms/episode began/occurred today. Modifying factors: The symptoms are aggravated by. Associated signs and symptoms: The patient has no apparent associated signs or symptoms. Severity of symptoms: At its worst the blood pressure was moderate. The patient has not experienced similar symptoms in the past. Historical: - Allergies: 05/20 22:42 No Known Allergies; sg - PMHx: 22:42 chronic bronchitis; Hypertension; Hypothyroidism; Osteoporosis; sg - PSHx: 22:42 cataract surgery; Hysterectomy; sg - Immunization history:: Adult Immunizations up to date. - Social history:: Smoking status: Patient denies any tobacco usage or history of. ROS: 05/21 05:25 Constitutional: Negative for fever, chills, and weight loss, Eyes: Negative for injury, tw4 pain, redness, and discharge, Cardiovascular: Negative for chest pain, palpitations, and edema, Respiratory: Negative for shortness of breath, cough, wheezing, and pleuritic chest pain, Abdomen/GI: Negative for abdominal pain, nausea, vomiting, diarrhea, and constipation, Back: Negative for injury and pain, MS/Extremity: Negative for injury and deformity, Skin: Negative for injury, rash, and discoloration, Neuro: Negative for headache, weakness, numbness, tingling, and seizure. Exam: 05:25 Constitutional: This is a well developed, well nourished patient who is awake, alert, tw4 and in no acute distress. Head/Face: Normocephalic, atraumatic. Chest/axilla: Normal chest wall appearance and motion. Nontender with no deformity. No lesions are appreciated. Cardiovascular: Regular rate and rhythm with a normal S1 and S2. No gallops, murmurs, or rubs. Normal PMI, no JVD. No pulse deficits. Respiratory: Lungs have equal breath sounds bilaterally, clear to auscultation and percussion. No rales, rhonchi or wheezes noted. No increased work of breathing, no retractions or nasal flaring. Abdomen/GI: Soft, non-tender, with normal bowel sounds. No distension or tympany. No guarding or rebound. No evidence of tenderness throughout. Back: No spinal tenderness. No costovertebral tenderness. Full range of motion. MS/ Extremity: Pulses equal, no cyanosis. Neurovascular intact. Full, normal range of motion. Neuro: Awake and alert, GCS 15, oriented to person, place, time, and situation. Cranial nerves II-XII grossly intact. Motor strength 5/5 in all extremities. Sensory grossly intact. Cerebellar exam normal. Normal gait. Vital Signs: 05/20 22:37 BP 154 / 89; Pulse 80; Resp 19; Pulse Ox 96% ; ea 23:05 BP 124 / 75; Pulse 76; Resp 18; Pulse Ox 95% ; ea MDM: 23:52 Patient medically screened. tw4 05/21 05:31 Differential diagnosis: hypertensive crisis, Malignant HTN. Data reviewed: vital signs, tw4 nurses notes. Data reviewed: lab test result(s), cardiac enzymes, CBC, electrolytes, EKG, radiologic studies, plain films, . Data interpreted: Pulse oximetry: Interpretation: normal. Counseling: I had a detailed discussion with the patient and/or guardian regarding: the historical points, exam findings, and any diagnostic results supporting the discharge/admit diagnosis, lab results. Special discussion: I discussed with the patient/guardian in detail that at this point there is no indication for admission to the hospital. It is understood, however, that if the symptoms persist or worsen the patient needs to return immediately for re-evaluation. 05/20 22:40 Order name: Basic Metabolic Panel 05/20 22:40 Order name: CBC with Diff; Complete Time: 23:42 05/20 23:42 Interpretation: Within normal limits. tw4 05/20 22:40 Order name: LFT's 05/20 22:40 Order name: Magnesium; Complete Time: 23:42 05/20 23:43 Interpretation: Within normal limits: MG 2.1. tw4 05/20 22:40 Order name: NT PRO-BNP; Complete Time: 23:42 05/20 23:43 Interpretation: Within normal limits: NT PRO-BNP 391. 05/20 22:40 Order name: PT-INR; Complete Time: 23:42 05/20 23:43 Interpretation: Within normal limits: PT 11.2. 05/20 22:40 Order name: Troponin (emerg Dept Use Only); Complete Time: 23:42 05/20 23:43 Interpretation: Within normal limits: TROPED 0.02. 05/20 22:40 Order name: XRAY Chest (1 view) 05/20 22:40 Order name: EKG; Complete Time: 22:40 05/20 22:40 Order name: Cardiac monitoring; Complete Time: 22:52 05/20 22:40 Order name: EKG - Nurse/Tech; Complete Time: 22:52 05/20 22:40 Order name: IV Saline Lock; Complete Time: 22:52 05/20 22:40 Order name: Basic Metabolic Panel; Complete Time: 23:42 EDMS 05/20 23:42 Interpretation: Normal except: CL 109; GFR 72. 05/20 22:40 Order name: Liver (Hepatic) Function; Complete Time: 23:42 EDMS 05/20 23:42 Interpretation: Normal except: GLOB 3.9; A/G 1.0. 05/20 22:40 Order name: Labs collected and sent; Complete Time: 22:52 05/20 22:40 Order name: O2 Per Protocol; Complete Time: 22:52 05/20 22:40 Order name: O2 Sat Monitoring; Complete Time: 22:52 EC:25 Rate is 81 beats/min. Rhythm is regular. Left axis deviation noted. AR interval is tw4 normal. QRS interval is normal. QT interval is normal. No Q waves. T waves are Normal. No ST changes noted. Clinical impression: LBBB. Interpreted by me. Reviewed by me. Administered Medications: No medications were administered Disposition: 05/20/20 23:52 Discharged to Home. Impression: Hypertensive urgency. - Condition is Stable. - Discharge Instructions: Hypertension. - Medication Reconciliation Form, Thank You Letter, Antibiotic Education, Prescription Opioid Use form. - Follow up: Private Physician; When: Upon discharge from the Emergency Department; Reason: Recheck today's complaints, Continuance of care, Re-evaluation by your physician. - Problem is new. - Symptoms have improved. Signatures: Dispatcher [employer] EDBran Portillo RN RN Oanh Ogden RN Adan Camp ea, MD MD tw4 Corrections: (The following items were deleted from the chart) 00:02 05/20 23:52 05/20/2020 23:52 Discharged to Home. Impression: Hypertensive urgency. ea Condition is Stable. Forms are Medication Reconciliation Form, Thank You Letter, Antibiotic Education, Prescription Opioid Use. Follow up: Private Physician; When: Upon discharge from the Emergency Department; Reason: Recheck today's complaints, Continuance of care, Re-evaluation by your physician. Problem is new. Symptoms have improved. tw4
[2020-05-21 00:53] VITALS: BP 124/75; O2SAT 95
--- NOTE | 2020-05-21 09:01 | RAD REPORT ---
EXAM DESCRIPTION: RAD - Chest Single View - 05/20/2020 11:00 pm CLINICAL HISTORY: PAIN Chest pain. COMPARISON: Chest Pa And Lat (2 Views) dated 03/18/2020; Chest Pa And Lat (2 Views) dated 07/03/2019; Chest Pa And Lat (2 Views) dated 01/03/2019; Chest Single View dated 02/07/2018 FINDINGS: Portable technique limits examination quality. The lungs are grossly clear. The heart is normal in size. 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 IMPRESSION: No acute intrathoracic process suspected.
--- NOTE | 2020-05-21 12:53 | EKG ---
Test Date: 2020-05-20 Test Time: 22:46:17 Data Operations Director: FÁTIMA MEASUREMENT RESULTS: Intervals: Rate: 81 CO: 182 QRSD: 138 QT: 424 QTc: 492 [place]: P: 47 CO: 182 QRS: 60 T: 206 INTERPRETIVE STATEMENTS: Normal sinus rhythm Left bundle branch block Abnormal ECG Compared to ECG 02/07/2018 05:22:23 Sinus tachycardia no longer present Electronically Signed On 05-21-20 12:52:33 CDT by Usman Wilson
== END 2020-05-21 00:02 | disposition home or self-care (01) ==
LOC: ER 22:26
DX: I16.0 Hypertensive urgency (principal); I10 Essential (primary) hypertension
CPT/HCPCS: 36415; 71045; 80048; 80076; 83735; 83880; 84484; 85025; 85610; 93005; 99284

== ENCOUNTER 2020-10-13 17:58 | Emergency (ER) | payer OTHER ==
--- OUTSIDE RECORDS SUMMARY | 2020-10-13 18:03 | XMS REPORT | Continuity of Care Document ---
:1935 Author Organization [facility] t Address [address] [place] [address] Care Team Providers Name Role Phone Bernardino Soto Attending Clinician Ahmet Huynh I Attending Clinician Unavailable Problems Condition Condition Condition Status Onset Resolution Last Treating Co mments Source Name Details Category Date Date Treatment Clinician Date Cobalamin Problem Active 2020-10-13 Me moria deficiency 00:59:53 l (disorder) Sung n Cobalamin deficiency (disorder) Active Problem 10/13/2020 [facility] Hypothyroi Problem Active 2020-10-13 M emoria dism 00:59:53 l (disorder) Sung n Hypothyroi dism (disorder) Active Problem 10/13/2020 [facility] Paresthesi Problem Active 2020-10-13 M emoria a 00:59:53 l (finding) [place] Paresthesi a (finding) Active Problem 10/13/2020 [facility] Peripheral Problem Active 2020-10-13 M emoria nerve 00:59:53 l disease [place] (disorder) Peripheral nerve disease (disorder) Active Problem 10/13/2020 [facility] Lumbar Problem Active 2020-10-13 Memor ia spondylosi 00:59:53 l s Lumbar Deni (disorder) spondylosi s (disorder) Active Problem 10/13/2020 [facility] 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 Social History Smoking Status Start Date Stop Date Source Social History [facility] Medications Ordered Filled Start Stop Current Ordering Indication Dosage Frequency Signature Comments Components Source Medication Medication Date Date Medication? 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, Height, 60.909, kg, 03/05/20 10:50:00 DIRECTOR OF QUANTITATIVE RESEARCH, Weight amitriptyli 2019-02 Yes 25 mg = 1 M emoria ne 25 mg 1-10 tab, PO, l oral tablet 16:57: Bedtime, # [place] 00 30 tab, 1 Refill(s) Vitamin B12 Yes 1,000 Memor ia 1000 mcg/mL 9-24 microgram, l injectable 20:37: IM, qWeek, H ermann solution 28 # 10 mL, 1 Refill(s), Pharmacy: [facility] #[id number], with needles and syringes Prolia Yes 60 mg, Memoria 8-13 SUB-Q, l 14:56: q6mo, 0 Deni 00 Refill(s) Non-Formula Yes See Pat blackmon ry Home 8-13 Instructio l Medication 14:56: ns, CBD Herm og 00 oil, Refill(s) 0 Thyroxine 2019- Yes Daily, 0 Jake daniel 8-13 Refill(s) l 13:57: [place] 00 Vital Signs Vital Name Observation Time Observation Value Comments Source Systolic (mm Hg) 2020-10-10 16:52:00 Jake rial [place] Diastolic (mm Hg) 2020-10-10 16:52:00 Mem orial Deni Heart Rate 2020-10-10 16:52:00 [facility] Respitory Rate 2020-10-10 16:52:00 Memori al [place] Height 2020-10-10 16:52:00 157.48 cm [facility] [place] Weight 2020-10-10 16:52:00 [facility] [place] BMI Calculated 2020-10-10 16:52:00 Memori al [place] Systolic (mm Hg) 2020-04-16 18:03:00 Jake rial [place] Diastolic (mm Hg) 2020-04-16 18:03:00 Mem orial [place] Heart Rate 2020-04-16 18:03:00 [facility] [place] Respitory Rate 2020-04-16 18:03:00 Memori al [place] Height 2020-04-16 18:03:00 160.02 cm [facility] [place] Weight 2020-04-16 18:03:00 [facility] [place] BMI Calculated 2020-04-16 18:03:00 Memori al [place] Systolic (mm Hg) 2020-03-05 16:50:00 Jake rial Den[place] Diastolic (mm Hg) 2020-03-05 16:50:00 Mem orial [place] Heart Rate 2020-03-05 16:50:00 [facility] Respitory Rate 2020-03-05 16:50:00 Memori al [place] Height 2020-03-05 16:50:00 160.02 cm [facility] [place] Weight 2020-03-05 16:50:00 [facility] BMI Calculated 2020-03-05 16:50:00 Memori al [place] Systolic (mm Hg) 2020-01-02 15:58:00 Jake rial [place] Diastolic (mm Hg) 2020-01-02 15:58:00 Mem orial [place] Heart Rate 2020-01-02 15:58:00 [facility] [place] Respitory Rate 2020-01-02 15:58:00 Memori al [place] Height 2020-01-02 15:58:00 157.48 cm [facility] Weight 2020-01-02 15:58:00 [facility] [place] BMI Calculated 2020-01-02 15:58:00 Memori al [place] Systolic (mm Hg) 2019-11-16 16:09:00 Jake rial [place] Diastolic (mm Hg) 2019-11-16 16:09:00 Mem orial [place] Heart Rate 2019-11-16 16:09:00 [facility] [place] Respitory Rate 2019-11-16 16:09:00 Memori al [place] Height 2019-11-16 16:09:00 157.48 cm [facility] [place] Weight 2019-11-16 16:09:00 [facility] [place] BMI Calculated 2019-11-16 16:09:00 Memori al [place] BMI Calculated 2019-01-05 20:12:00 Memori al [place] Systolic (mm Hg) 2019-01-05 20:12:00 Jake rial [place] Diastolic (mm Hg) 2019-01-05 20:12:00 Mem orial Den[place] Heart Rate 2019-01-05 20:12:00 [facility] [place] Respitory Rate 2019-01-05 20:12:00 Memori al [place] Height 2019-01-05 20:12:00 160.02 cm [facility] [place] Weight 2019-01-05 20:12:00 [facility] [place] Systolic (mm Hg) 2018-11-15 19:48:00 Jake rial Deni Diastolic (mm Hg) 2018-11-15 19:48:00 Mem orial Den[place] Heart Rate 2018-11-15 19:48:00 [facility] Respitory Rate 2018-11-15 19:48:00 Memori al [place] Height 2018-11-15 19:48:00 160.02 cm [facility] [place] Weight 2018-11-15 19:48:00 [facility] [place] BMI Calculated 2018-11-15 19:48:00 Memori al [place] Systolic (mm Hg) 2018-10-04 13:51:00 Jake rial Den[place] Diastolic (mm Hg) 2018-10-04 13:51:00 Mem orial Den[place] Heart Rate 2018-10-04 13:51:00 [facility] [place] Respitory Rate 2018-10-04 13:51:00 Memori al [place] Height 2018-10-04 13:51:00 157.48 cm [facility] Weight 2018-10-04 13:51:00 [facility] BMI Calculated 2018-10-04 13:51:00 Memori al [place] Procedures This patient has no known procedures. Encounters Start End Encounter Admission Attending Care Care Encounter Source Date/Time Date/Time Type Type Clinicians Facility Department ID 2020-11-21 2020-11-21 Outpatient SOCO WAN [id number] [facility] 11:15:00 11:15:00 10 l [place] 2020-10-10 2020-10-11 Outpatient nullFlavo MNA [id number] [facility] 16:45:00 04:59:59 r Neurology 09 l Judith Cheema 2020-10-10 2020-10-10 Outpatient FLASH SotoSCHER [id number] 11:45:00 23:59:59 Cornelio 09 Bernardino 2020-10-10 2020-10-10 Outpatient MHIE MHIE [id number] [facility] 11:45:00 11:45:00 09 nael Cheema 2020-04-16 2020-04-17 Outpatient nullFlavo MNA [id number] [facility] 17:45:00 05:59:59 r Neurology 08 nael Cheema 2020-04-16 2020-04-16 Outpatient FLASH SotoSCHER [id number] 11:45:00 23:59:59 Cornelio 08 Bernardino 2020-04-16 2020-04-16 Outpatient MHIE MHIE [id number] [facility] 11:45:00 11:45:00 08 nael Cheema 2020-03-15 2020-03-15 Laboratory Lab, [facility] [id number] 11:00:40 11:20:40 Only [facility] [id number] [place] [id number] Professio [id number] [address]al [address] 2020-03-05 2020-03-06 Outpatient nullFlavo MNA [id number] Memoria 16:15:00 05:59:59 r Neurology 07 nael Estancia Deni 2020-03-05 2020-03-05 Outpatient FLASH SotoSCHER [id number] 10:15:00 23:59:59 Cornelio 07 Bernardino 2020-03-05 2020-03-05 Outpatient MHIE MHIE [id number] [facility] 10:15:00 10:15:00 07 nael Deni 2020-01-02 2020-01-03 Outpatient nullFlavo MNA [id number] [facility] 16:15:00 05:59:59 r Neurology 06 l Estancia Deni 2020-01-02 2020-01-02 Outpatient FLASH SotoSCHER [id number] 10:15:00 23:59:59 Cornelio 06 Bernardino 2020-01-02 2020-01-02 Outpatient MHIE MHIE [id number] [facility] 10:15:00 10:15:00 06 nael Cheema 2019-11-16 2019-11-17 Outpatient nullFlavo MNA [id number] [facility] 15:45:00 04:59:59 r Neurology 05 nael Wong Deni 2019-11-16 2019-11-16 Outpatient Charles MHMISCHER MHMISCHER [id number] 10:45:00 23:59:59 Cornelio 05 Bernardino 2019-11-16 2019-11-16 Outpatient MHIE MHIE [id number] [facility] 10:45:00 10:45:00 05 nael Deni 2019-07-06 2019-07-06 Ambulatory nullFlavo MNA [id number] Mem[facility] 19:15:00 19:15:00 Pre-Reg r Neurology 04 nael Estancia Deni 2019-07-06 2019-07-06 Outpatient MHIE MHIE [id number] [facility] 14:15:00 14:15:00 04 nael Deni 2019-07-06 2019-07-06 Outpatient KARIN SotoMISCHER MHMISCHER [id number] 14:15:00 14:15:00 Cornelio 04 Bernard[place] 2019-01-05 2019-01-06 Outpatient nullFlavo MNA [id number] [facility] 20:00:00 05:59:59 r Neurology 03 nael Wong [place] 2019-01-05 2019-01-05 Outpatient KAE SotoSCHER MHMISCHER [id number] 14:00:00 23:59:59 Cornelio 03 Bernard[place] 2019-01-05 2019-01-05 Outpatient MHIE MHIE [id number] [facility] 14:00:00 14:00:00 03 nael [place] 2018-12-27 2018-12-27 Ambulatory nullFlavo MNA [id number] [facility] 21:30:00 21:30:00 Pre-Reg r Neurology 02 nael Estancia Deni 2018-12-27 2018-12-27 Outpatient MHIE MHIE [id number] [facility] 15:30:00 15:30:00 02 nael Deni 2018-12-27 2018-12-27 Outpatient KARIN SotoMISCHER MHMISCHER [id number] 15:30:00 15:30:00 Cornelio 02 Bernardino 2018-11-15 2018-11-16 Outpatient nullFlavo MNA [id number] [facility]oria 19:15:00 04:59:59 r Neurology 01 nael Wong Deni 2018-11-15 2018-11-15 Outpatient FLASH Soto ANDREIA [id number] 14:15:00 23:59:59 Cornelio 01 Bernard[place] 2018-11-15 2018-11-15 Outpatient MHIE SOCO [id number] [facility] 14:15:00 14:15:00 01 nael Cheema 2018-10-04 2018-10-05 Outpatient nullFlavo MNA [id number] [facility] 14:30:00 04:59:59 r Neurology 00 l Judith Cheema 2018-10-04 2018-10-04 Outpatient FLASH Soto ANDREIA [id number] 09:30:00 23:59:59 Cornelio 00 [place] 2018-10-04 2018-10-04 Outpatient MHIE SOCO [id number] [facility] 09:30:00 09:30:00 00 nael Cheema Results Test Description Test Time Test Comments Results Result Comments Source ANEMIA STUDY 2020-03-06 1500 [facility] [place] 16:26:00 IMMUNOLOGY 2020-03-06 19.0 [facility] nn 16:26:00 ANEMIA STUDY 2018-11-15 380 [facility] [place] 20:49:00
[2020-10-13 19:20] LABS: Absolute Lymphocytes (CBC) 0.3 K/uL (0.7-4.9); Hematocrit 41.9 % (36.0-45.0); Lymphocytes % 2.6 % (15.3-44.8)
[2020-10-13 19:30] LABS: Protime INR 0.96
[2020-10-13 19:52] LABS: ALT/SGPT 17 U/L (12-78); AST/SGOT 16 U/L (15-37); Albumin 4.1 g/dL (3.4-5.0); Alkaline Phosphatase 100 U/L (45-117); BUN Blood Urea Nitrogen 11 mg/dL (7-18); Bicarbonate 26 mmol/L (21-32); Bilirubin Direct 0.1 mg/dL (0-0.2); Bilirubin Total 0.4 mg/dL (0.2-1.0); Glucose Level 105 mg/dL (74-106); NT PRO-BNP 289 pg/mL (<450); Potassium 3.8 mmol/L (3.5-5.1); Protein, Total 7.6 g/dL (6.4-8.2); Sodium Level 142 mmol/L (136-145); Troponin (Emerg Dept Use Only) < 0.02 ng/mL (0.0-0.045)
[2020-10-13 20:00] LABS: White Blood Cell Scan OK (OK)
[2020-10-13 20:01] LABS: Platelet Estimate ADEQ
[2020-10-13 20:04] LABS: Blood Morphology Comment NOT SEEN (NOT SEEN)
--- NOTE | 2020-10-13 20:56 | RAD REPORT ---
EXAM DESCRIPTION: RAD - Chest Single View - 10/13/2020 8:29 pm CLINICAL HISTORY: cough, sob COMPARISON: Portable May 20 TECHNIQUE: AP portable chest image was obtained 10/13/2020 8:29 pm . FINDINGS: Chronic interstitial lung disease matches comparison. No peripheral mass or consolidation. Apical thickening is seen. No acute failure or volume overload suspected. Heart and vasculature are normal. No measurable pleural effusion and no pneumothorax. No acute bony abnormality seen. No acute aortic findings suspected. IMPRESSION: No acute cardiopulmonary process. No significant change from comparison study.
[2020-10-13 22:12] LABS: Urine Blood Negative (Negative); Urine Glucose Negative (Negative); Urine Protein Negative (Negative); Urine pH 5.5 (5.0-7.0)
--- NOTE | 2020-10-13 22:48 | ER ---
Nurse's Notes [facility] Name: Kelsi Swan Age: 85 yrs Sex: Female : 1935 Arrival Date: 10/13/2020 Time: 18:32 Bed 8 Private MD: Diagnosis: Acute upper respiratory infection, unspecified Presentation: 10/13 18:40 Chief complaint: EMS states: Toned out for shortness of breath, cough, nausea and jl7 smelly urine since this morning. 92% on Room air, 96 % on 2 lpm NC. Denies CP. Right BBB on EKG. Afebrile. Coronavirus screen: cough unrelated to allergies, shortness of breath, Client presents with at least one sign or symptom that may indicate coronavirus-19. Standard/surgical mask placed on the client. Provider contacted for isolation considerations. Ebola Screen: No symptoms or risks identified at this time. Initial Sepsis Screen: Does the patient meet any 2 criteria? No. Patient's initial sepsis screen is negative. Does the patient have a suspected source of infection? No. Patient's initial sepsis screen is negative. Risk Assessment: Do you want to hurt yourself or someone else? Patient reports no desire to harm self or others. Onset of symptoms was October 13, 2020. Care prior to arrival: Glucose check: 132 Oxygen administered. via nasal cannula. 18:40 Method Of Arrival: EMS: [facility] jl7 18:40 Acuity: ANKIT 3 jl7 Triage Assessment: 18:44 General: Appears in no apparent distress. uncomfortable, Behavior is calm, cooperative, jl7 appropriate for age. Pain: Denies pain. Neuro: Level of Consciousness is awake, alert, obeys commands, Oriented to person, place, time, situation. Cardiovascular: Denies chest pain, Patient's skin is warm and dry. Respiratory: Airway is patent Respiratory effort is even, unlabored, Respiratory pattern is regular, symmetrical. GI: Reports nausea. : Reports. Derm: Skin is pink, warm \T\ dry. Historical: - Allergies: 18:44 No Known Allergies; jl7 - Home Meds: 18:44 levothyroxine 112 mcg tab 1 tab once daily [Active]; jl7 - PMHx: 18:44 chronic bronchitis; Hypertension; Hypothyroidism; Osteoporosis; jl7 - Immunization history:: Client reports receiving the 2nd dose of the Covid vaccine, Date received: July 2020 Jose Cruz. - Social history:: Smoking status: Patient denies any tobacco usage or history of. Screenin:12 Abuse screen: Denies threats or abuse. Denies injuries from another. Nutritional jl7 screening: No deficits noted. Tuberculosis screening: No symptoms or risk factors identified. Fall Risk IV access (20 points). Total Palmer Fall Scale indicates No Risk (0-24 pts). Assessment: 19:15 General: Appears in no apparent distress. uncomfortable, Behavior is calm, cooperative, jb4 appropriate for age. Pain: Complains of pain in back Pain does not radiate. Pain currently is 6 out of 10 on a pain scale. Neuro: Level of Consciousness is awake, alert, obeys commands, Oriented to person, place, time, situation. Cardiovascular: Patient's skin is warm and dry. Respiratory: Airway is patent Respiratory effort is even, unlabored, Respiratory pattern is regular, symmetrical. GI: No signs and/or symptoms were reported involving the gastrointestinal system. : No signs and/or symptoms were reported regarding the genitourinary system. EENT: No signs and/or symptoms were reported regarding the EENT system. Derm: Skin is intact, Skin is pink, warm \T\ dry. Musculoskeletal: Circulation, motion, and sensation intact. Range of motion: intact in all extremities. 20:00 Reassessment: Patient appears in no apparent distress at this time. Patient and/or jb4 family updated on plan of care and expected duration. Pain level reassessed. Patient is alert, oriented x 3, equal unlabored respirations, skin warm/dry/pink. 21:00 Reassessment: Patient appears in no apparent distress at this time. Patient and/or jb4 family updated on plan of care and expected duration. Pain level reassessed. Patient is alert, oriented x 3, equal unlabored respirations, skin warm/dry/pink. 22:00 Reassessment: Patient appears in no apparent distress at this time. Patient and/or jb4 family updated on plan of care and expected duration. Pain level reassessed. Patient is alert, oriented x 3, equal unlabored respirations, skin warm/dry/pink. 23:19 Reassessment: Patient and/or family updated on plan of care and expected duration. Pain ea level reassessed. Patient is alert, oriented x 3, equal unlabored respirations, skin warm/dry/pink. Discharge instruction given to patient verbalized the understanding of instruction. Pt left ED via wheelchair, family awaiting for pt in private vehicle. Vital Signs: 18:40 BP 168 / 74; Pulse 108; Resp 19; Temp 98.4(TE); Pulse Ox 96% on R/A; Weight 56.25 kg jl7 (R); Pain 0/10; 20:00 BP 165 / 77; Pulse 109; Resp 22; Pulse Ox 99% on 2 lpm NC; jb4 21:00 BP 164 / 70; Pulse 112; Resp 24; Pulse Ox 99% on 2 lpm NC; jb4 22:00 BP 157 / 77; Pulse 104; Resp 28; Pulse Ox 98% on 2 lpm NC; jb4 23:05 BP 158 / 68; Pulse 103; Resp 23; Pulse Ox 97% on R/A; jb4 ED Course: 18:32 Patient arrived in ED. iw 18:35 Carroll [place] PA is PHCP. [facility] 18:35 Yury Gutierrez MD is Attending Physician. [facility] 18:37 Attending Physician role handed off by Yury Gutierrez MD [facility] 18:37 Marcus Last MD is Attending Physician. [facility] 18:44 Triage completed. jl7 18:44 Arm band placed on right wrist. jl7 19:00 Missed attempt(s): 22 gauge in right wrist. Bleeding controlled, band aid applied, jl7 catheter tip intact. 19:12 Patient has correct armband on for positive identification. Bed in low position. Call jl7 light in reach. Side rails up X 1. coiler on. Pulse ox on. NIBP on. Warm blanket given. 19:12 Initial lab(s) drawn, by ny, sent to lab. Inserted saline lock: 22 gauge in left jl7 forearm, using aseptic technique. Blood collected. 19:15 COVID swab sent to lab. jl7 19:45 Inserted saline lock: 20 gauge in right forearm, using aseptic technique. Blood jb4 collected. 19:45 Initial lab(s) drawn, by ny, sent to lab. Second set of blood cultures drawn by me. jb4 19:56 Dewayne Parra, RN is Primary Nurse. jb4 20:29 XRAY Chest (1 view) In Process Unspecified. EDMS 23:18 No provider procedures requiring assistance completed. IV discontinued, intact, ea bleeding controlled, No redness/swelling at site. Pressure dressing applied. Administered Medications: 22:47 Drug: Decadron - Dexamethasone 10 mg Route: IVP; Site: right forearm; jb4 23:20 Follow up: Response: No adverse reaction ea 23:03 Drug: Rocephin (cefTRIAXone) 1 grams Route: IV; Rate: calculated rate; Site: left jb4 forearm; 23:20 Follow up: IV Status: Completed infusion ea 23:03 Drug: AZITHromycin 500 mg Route: PO; jb4 23:20 Follow up: Response: No adverse reaction ea Outcome: :47 Discharge ordered by . abelardo 23:19 Discharged to home via wheelchair, with family. ea 23:19 Condition: stable 23:19 Discharge instructions given to patient, Instructed on discharge instructions, follow up and referral plans. medication usage, Demonstrated understanding of instructions, follow-up care, medications, Prescriptions given X 2. 23:20 Patient left the ED. ea Signatures: Dispatcher [employer] EDMS Marcus Last MD MD cha Mickail, Joel, PA PA Carrie Muñoz, RN RN Dewayne Cook RN RN jb4 Luanne Rios RN RN jl7 Oanh Jauregui RN RN ea
--- NOTE | 2020-10-13 22:48 | EDPHYS ---
Physician Documentation [facility] Name: Kelsi Swan Age: 85 yrs Sex: Female : 1935 Arrival Date: 10/13/2020 Time: 18:32 Bed 8 Private MD: ED Physician Marcus Last HPI: 10/13 19:55 This 85 yrs old Female presents to ER via EMS with complaints of Cough, jmm shortness of breath. 19:55 The patient or guardian reports cough. Onset: The symptoms/episode began/occurred jmm gradually, 1 day(s) ago. Modifying factors: The symptoms are alleviated by nothing. the symptoms are aggravated by nothing. Associated signs and symptoms:. The patient has experienced similar episodes in the past, several times. Patient states she is immunized for coronavirus. Patient states she has had multiple episodes of pneumonia in the past as well.. Historical: - Allergies: 18:44 No Known Allergies; jl7 - Home Meds: 18:44 levothyroxine 112 mcg tab 1 tab once daily [Active]; jl7 - PMHx: 18:44 chronic bronchitis; Hypertension; Hypothyroidism; Osteoporosis; jl7 - Immunization history:: Client reports receiving the 2nd dose of the Covid vaccine, Date received: July 2020 [facility]. - Social history:: Smoking status: Patient denies any tobacco usage or history of. ROS: 19:55 Constitutional: Positive for body aches, chills. jmm 19:55 Respiratory: Positive for cough, shortness of breath. 19:55 All other systems are negative. Exam: 19:55 Constitutional: This is a well developed, well nourished patient who is awake, alert, jmm and in no acute distress. Head/Face: atraumatic. Eyes: EOMI, no conjunctival erythema appreciated ENT: Moist Mucus Membranes Neck: Trachea midline, Supple Chest/axilla: Normal chest wall appearance and motion. Cardiovascular: Regular rate and rhythm. No edema appreciated Respiratory: Normal respirations, no respiratory distress appreciated Abdomen/GI: Non distended, soft Back: Normal ROM Skin: General appearance color normal MS/ Extremity: Moves all extremities, no obvious deformities appreciated, no edema noted to the lower extremities Neuro: Awake and alert, normal gait Psych: Behavior is normal, Mood is normal, Patient is cooperative and pleasant Vital Signs: 18:40 BP 168 / 74; Pulse 108; Resp 19; Temp 98.4(TE); Pulse Ox 96% on R/A; Weight 56.25 kg jl7 (R); Pain 0/10; 20:00 BP 165 / 77; Pulse 109; Resp 22; Pulse Ox 99% on 2 lpm NC; jb4 21:00 BP 164 / 70; Pulse 112; Resp 24; Pulse Ox 99% on 2 lpm NC; jb4 22:00 BP 157 / 77; Pulse 104; Resp 28; Pulse Ox 98% on 2 lpm NC; jb4 23:05 BP 158 / 68; Pulse 103; Resp 23; Pulse Ox 97% on R/A; jb4 MDM: 18:37 Patient medically screened. evi 22:45 Data reviewed: vital signs, nurses notes. Counseling: I had a detailed discussion with abelardo the patient and/or guardian regarding: the historical points, exam findings, and any diagnostic results supporting the discharge/admit diagnosis, lab results, radiology results, the need for outpatient follow up, to return to the emergency department if symptoms worsen or persist or if there are any questions or concerns that arise at home. ED course: Is alert nontoxic in appearance in the ED. Vital signs reveal the patient is not hypoxic. Patient most likely has an acute upper respiratory infection. Patient advised to follow-up PCP and otherwise given strict return precautions. Patient understood and agrees to plan of care.. 10/13 18:45 Order name: Basic Metabolic Panel [facility] 10/13 18:45 Order name: CBC with Diff [facility] 10/13 18:45 Order name: LFT's [facility] 10/13 18:45 Order name: Magnesium [facility] 10/13 18:45 Order name: NT PRO-BNP [facility] 10/13 18:45 Order name: PT-INR; Complete Time: 19:48 [facility] 10/13 18:45 Order name: Troponin (emerg Dept Use Only); Complete Time: 19:53 [facility] 10/13 18:45 Order name: Basic Metabolic Panel; Complete Time: 19:53 [facility] 10/13 18:45 Order name: CBC with Automated Diff; Complete Time: 20:06 [facility] 10/13 18:45 Order name: Liver (Hepatic) Function; Complete Time: 19:53 [facility] 10/13 18:45 Order name: Magnesium; Complete Time: 19:53 [facility] 10/13 18:45 Order name: NT PRO-BNP; Complete Time: 19:53 [facility] 10/13 18:59 Order name: Blood Culture Adult (2) [facility] 10/13 18:45 Order name: XRAY Chest (1 view); Complete Time: 21:07 [facility] 10/13 18:45 Order name: EKG; Complete Time: 18:46 [facility] 10/13 18:45 Order name: Cardiac monitoring; Complete Time: 19:15 [facility] 10/13 18:45 Order name: EKG - Nurse/Tech; Complete Time: 19:56 [facility] 10/13 18:45 Order name: IV Saline Lock; Complete Time: 19:15 [facility] 10/13 18:45 Order name: Labs collected and sent; Complete Time: 19:15 [facility] 10/13 18:45 Order name: O2 Per Protocol; Complete Time: 19:15 [facility] 10/13 18:59 Order name: Lactate [facility] 10/13 18:59 Order name: Procalcitonin; Complete Time: 21:58 [facility] 10/13 19:58 Order name: SARS-COV-2 RT PCR; Complete Time: 19:59 [facility] 10/13 20:00 Order name: CBC Smear Scan; Complete Time: 20:06 [facility] 10/13 20:07 Order name: Urine Culture [facility] 10/13 22:12 Order name: Urine Dipstick-Ancillary; Complete Time: 22:18 [facility] 10/13 18:45 Order name: O2 Sat Monitoring; Complete Time: 19:15 [facility] 10/13 20:07 Order name: Urine Dipstick-Ancillary (obtain specimen); Complete Time: 22:12 [facility] Administered Medications: 22:47 Drug: Decadron - Dexamethasone 10 mg Route: IVP; Site: right forearm; jb4 23:20 Follow up: Response: No adverse reaction ea 23:03 Drug: Rocephin (cefTRIAXone) 1 grams Route: IV; Rate: calculated rate; Site: left jb4 forearm; 23:20 Follow up: IV Status: Completed infusion ea 23:03 Drug: AZITHromycin 500 mg Route: PO; jb4 23:20 Follow up: Response: No adverse reaction ea Disposition: 10/14 07:40 Co-signature as Attending Physician, Marcus Last MD I agree with the assessment and evi plan of care. Disposition Summary: 10/13/20 22:47 Discharge Ordered Location: Home [facility] Condition: Stable [facility] Diagnosis - Acute upper respiratory infection, unspecified [facility] Followup: jmm - With: Private Physician - When: 2 - 3 days - Reason: Recheck today's complaints, Continuance of care, Re-evaluation by your physician Discharge Instructions: - Discharge Summary Sheet [facility] - Upper Respiratory Infection, Adult [facility] Forms: - Medication Reconciliation Form [facility] - Thank You Letter [facility] - Antibiotic Education [facility] - Prescription Opioid Use [facility] Prescriptions: - albuterol sulfate 90 mcg/actuation Inhalation HFA aerosol inhaler - inhale 2 puff by INHALATION route every 4 hours; 1 Pump; Refills: 0, Product jm Selection Permitted - Zithromax Z-Bernardino 250 mg Oral Tablet - take 1 tablet by ORAL route as directed for 5 days Day 1 - take two (2) tablets [facility] one time. Day 2, 3, 4 , 5 take one (1) tablet once daily.; 6 tablet; Refills: 0, Product Selection Permitted Signatures: Dispatcher [employer] [facility] Marcus Last MD MD cha Mickail, Joel, PA PA [facility] Dewayne Parra, RN RN jb4 Luanne Rios RN RN jl7 Oanh Jauregui RN, ea Corrections: (The following items were deleted from the chart) 10/13 19:03 18:46 CORONAVIRUS+[email or web address] ordered. [facility] 22:20 22:19 Misc. Order ordered. [facility] jb4
[2020-10-13] MEDS ORDERED: dexAMETHasone 10 MG/ML VIAL ONE (23:04)
[2020-10-13] MEDS ORDERED: AZITHROMYCIN 250 MG TAB ONE (23:17)
[2020-10-13] MEDS ORDERED: CEFTRIAXONE/SWI 1gm 1 GM/10 ML SYR ONE (23:18)
[2020-10-13 23:26] VITALS: TEMP 98.4
[2020-10-13 23:27] VITALS: BP 158/68; O2SAT 97
== END 2020-10-13 23:20 | disposition home or self-care (01) ==
LOC: ER 17:58
DX: J06.9 Acute upper respiratory infection, unspecified (principal); I10 Essential (primary) hypertension; E03.9 Hypothyroidism, unspecified; Z20.822 Contact with and (suspected) exposure to COVID-19
CPT/HCPCS: 96365; 93005; 87040 ×2; 87088; 85025; 87086; 80048; 36415; 83735; 85610; 80076; 83605; 81003; 84484; 84145; 83880; 71045; 96375; 99285; U0003; J1100; J0696